=== PATIENT | female | born 2000 | race Caucasian/White ===

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

== ENCOUNTER 2023-01-04 01:09 | Emergency (ER) | payer SELFPAY ==
[~2023-01-04] VITALS: Ht 160 cm; Wt 68.0 kg
[2023-01-04 02:10] LABS: BASO% 0.3 % (0-3); EOS% 1.6 % (0-8); HEMATOCRIT 39.1 % (37.0-47.0); HEMOGLOBIN 12.8 g/dl (12.0-16.0); IMMATURE GRANULOCYTES 0.1 % (0.0-5.0); LYMPH% 30.8 % (15-41); MEAN CELL VOLUME 90.7 fL CALC (80.0-100.0); MEAN CORPUSCULAR HGB 29.7 pG CALC (26.0-32.0); MEAN CORPUSCULAR HGB CONC 32.7 g/dL CAL (32.0-36.0); MONO% 6.5 % (2-13); NEUT# 6.03 thou/uL (2.00-7.15); NEUT% 60.7 % (42-76); RED BLOOD COUNT 4.31 mill/uL (4.20-5.60); RED CELL DISTRI WIDTH 11.8 % (11.5-15.5)
[2023-01-04 03:08] VITALS: BP 121/78
== END 2023-01-04 03:07 | disposition home or self-care (01) | DRG 866 ==
LOC: ED 01:09
PROVIDERS: Family Medicine
DX: B34.9 Viral infection, unspecified (principal); J02.9 Acute pharyngitis, unspecified; H92.09 Otalgia, unspecified ear; F31.9 Bipolar disorder, unspecified

== ENCOUNTER 2023-01-20 08:29 | Emergency (ER) | payer SELFPAY ==
[~2023-01-20] VITALS: Ht 160 cm; Wt 65.0 kg
[2023-01-20 08:37] VITALS: BP 125/78
[2023-01-20 09:31] LABS: URINE BILIRUBIN - DIPSTICK NEGATIVE (NEGATIVE); URINE BLOOD DIPSTICK NEGATIVE (NEGATIVE); URINE COLOR YELLOW; URINE GLUCOSE - DIPSTICK NEGATIVE (NEGATIVE); URINE KETONE NEGATIVE (NEGATIVE); URINE LEUK ESTERASE NEGATIVE (NEGATIVE); URINE NITRITE - DIPSTICK NEGATIVE (Negative); URINE PH 6.5 (4.5-8.0); URINE PROTEIN - DIPSTICK NEGATIVE (NEG-TRACE); URINE UROBILINOGEN - DIPSTICK 0.2 E.U./dL (0.2)
[2023-01-20] MEDS ORDERED: FLEXERIL5 M1 PO (09:41)
[2023-01-20] MEDS ORDERED: DECADRON4 MG PO (09:41)
[2023-01-20 09:48] VITALS: BP 125/78
== END 2023-01-20 09:54 | disposition home or self-care (01) | DRG 552 ==
LOC: ED 08:29
PROVIDERS: Emergency Medicine
DX: S13.9XXA Sprain of joints and ligaments of unspecified parts of neck, initial encounter (principal); X50.0XXA Overexertion from strenuous movement or load, initial encounter

== ENCOUNTER 2023-03-23 09:15 | Emergency (ER) | payer SELFPAY ==
[~2023-03-23] VITALS: Ht 160 cm; Wt 66.6 kg
[~2023-03-23 09:15] MED LIST changes: +DECADRON4 MG PO; +FLEXERIL5 M1 PO
[2023-03-23 10:40] VITALS: BP 99/74
[2023-03-23 10:45] VITALS: BP 112/70
[2023-03-23 11:00] VITALS: BP 106/70
[2023-03-23] MEDS ORDERED: ALLERGY RE50 MCG/ACT (11:54)
[2023-03-23] MEDS ORDERED: ZYRTEC10 MG PO (11:54)
[2023-03-23 11:56] VITALS: BP 106/70
== END 2023-03-23 12:01 | disposition home or self-care (01) | DRG 153 ==
LOC: ED 09:15
DX: J06.9 Acute upper respiratory infection, unspecified (principal); Z20.822 Contact with and (suspected) exposure to COVID-19

== ENCOUNTER 2023-03-30 21:10 | Emergency (ER) | payer SELFPAY ==
[~2023-03-30] VITALS: Ht 160 cm; Wt 63.5 kg
[2023-03-30] VITALS (7 sets, daily range): BP systolic 96–117; BP diastolic 54–73
[~2023-03-30 21:10] MED LIST changes: +ALLERGY RE50 MCG/ACT; +ZYRTEC10 MG PO
[2023-03-30 23:00] LABS: BASO% 0.2 % (0-3); EOS% 1.7 % (0-8); HEMATOCRIT 37.3 % (37.0-47.0); HEMOGLOBIN 12.4 g/dl (12.0-16.0); IMMATURE GRANULOCYTES 0.2 % (0.0-5.0); LYMPH% 23.2 % (15-41); MEAN CELL VOLUME 89.2 fL CALC (80.0-100.0); MEAN CORPUSCULAR HGB 29.7 pG CALC (26.0-32.0); MEAN CORPUSCULAR HGB CONC 33.2 g/dL CAL (32.0-36.0); MONO% 6.3 % (2-13); NEUT# 6.41 thou/uL (2.00-7.15); NEUT% 68.4 % (42-76); RED BLOOD COUNT 4.18 mill/uL (4.20-5.60); RED CELL DISTRI WIDTH 11.5 % (11.5-15.5)
[2023-03-30 23:20] LABS: ALBUMIN 4.4 g/dL (3.2-5.0); ALKALINE PHOSPHATASE 54 u/l (38-126); ANION GAP 13 (6-22 (CALC)); BUN 10 mg/dL (7-17); BUN/CREATININE RATIO 20 (12-20 (CALC)); CARBON DIOXIDE 24 mmol/l (22-30); CHLORIDE 104 mmol/l (95-108); CREATININE 0.5 mg/dL (0.5-1.0); GFR FOR AFR.AMER. > 60 ML/MIN (>=60 (CALC)); GFR OTHER RACES > 60 ML/MIN (>=60 (CALC)); SGOT/AST 21 u/l (14-36); SODIUM 137 mmol/l (137-146); TOTAL PROTEIN 7.7 g/dL (6.3-8.2)
[2023-03-30 23:30] LABS: BILIRUBIN, TOTAL 0.2 mg/dL (0.02-1.3)
[2023-03-30 23:47] LABS: BETA-HCG, QUANT(RESULT NUMBER) 98979 mIU/mL
[2023-03-31 00:40] LABS: URINE BILIRUBIN - DIPSTICK NEGATIVE (NEGATIVE); URINE BLOOD DIPSTICK NEGATIVE (NEGATIVE); URINE COLOR YELLOW; URINE GLUCOSE - DIPSTICK NEGATIVE (NEGATIVE); URINE KETONE 15 mg/dL (NEGATIVE); URINE LEUK ESTERASE NEGATIVE (NEGATIVE); URINE PROTEIN - DIPSTICK NEGATIVE (NEG-TRACE); URINE SPECIFIC GRAVITY 1.015; URINE UROBILINOGEN - DIPSTICK 0.2 E.U./dL (0.2)
[2023-03-31 00:43] LABS: URINE NITRITE - DIPSTICK NEGATIVE (Negative)
[2023-03-31 00:50] VITALS: BP 103/59
== END 2023-03-31 01:06 | disposition home or self-care (01) | DRG 833 ==
LOC: ED 21:10
PROVIDERS: Emergency Medicine
DX: O20.0 Threatened abortion (principal); Z3A.00 Weeks of gestation of pregnancy not specified

== ENCOUNTER 2023-11-08 17:36 | Emergency (ER) | payer OTHER ==
[~2023-11-08] VITALS: Ht 160 cm; Wt 69.3 kg
[2023-11-08] MEDS ORDERED: DIFLUCAN150 MG PO (18:13)
[2023-11-08 18:36] VITALS: BP 120/74
== END 2023-11-08 18:36 | disposition home or self-care (01) ==
LOC: ED 17:36
DX: B37.2 Candidiasis of skin and nail (principal)